=== PATIENT | female | born 1965 ===

== ENCOUNTER 2017-02-03 18:58 | Emergency (ER) | payer OTHER ==
[2017-02-03 19:12] VITALS: PULSE 64; RESP 18; TEMP 98.5; O2SAT 100
--- NOTE | 2017-02-03 19:39 | ED PDOC ---
Lower Extremity Pain/Injury Time Seen by Provider: 02/03/17 19:13 Chief Complaint (Nursing): Lower Extremity Problem/Injury Chief Complaint (Provider): left foot pain History Per: Patient, Family (son at bedside is translating in ukrainian for patient) Additional Complaint(s): 51-year-old female presents to emergency Department with pain to left foot that started 3 days ago. Patient denies trauma or injury. 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 She took Advil earlier which did help the pain. The patient states that the majority of the pain is localized to the bottom of her foot. No associated ankle pain. Past Medical History Reviewed: Historical Data, Nursing Documentation, Vital Signs Vital Signs: Last Vital Signs Temp 98.5 F 02/03/17 19:09 Pulse 64 02/03/17 19:09 Resp 18 02/03/17 19:09 BP 162/94 H 02/03/17 19:09 Pulse Ox 100 02/03/17 19:09 - Medical History PMH: HTN - Surgical History Surgical History: (x 2) Other surgeries: left foot bunionectomy, lipoma removal from anterior neck - Family History Family History: States: No Known Family Hx - Living Arrangements Living Arrangements: With Family - Social History Current smoker - smoking cessation education provided: No Alcohol: None Drugs: Denies - Home Medications Home Medications: Ambulatory Orders Medication Instructions Recorded Ibuprofen [Motrin Tab] 800 mg PO Q8 PRN #20 tab 02/03/17 - Allergies Allergies/Adverse Reactions: Allergies Allergy/AdvReac Type Severity Reaction Status Date / Time No Known Allergies Allergy Verified 02/03/17 19:09 Wells Criteria for PE - Wells Criteria for Pulmonary Embolism Clinical Signs and Symptoms of DVT: No P.E is #1 Diagnosis, or Equally Likely: No Heart Rate >100: No Immobilization at least 3 days;Surgery previous 4 weeks: No Previous, objectively diagnosed PE or DVT: No Hemoptysis: No Malignancy w/treatment within 6 months, or palliative: No Total Score: 0 Review of Systems ROS Statement: Except As Marked, All Systems Reviewed And Found Negative Musculoskeletal: Positive for: Foot Pain (left foot pain, denies trauma) Physical Exam - Reviewed Nursing Documentation Reviewed: Yes Vital Signs Reviewed: Yes - Physical Exam Appears: Positive for: Well, Non-toxic, No Acute Distress Skin: Negative for: Rash Eye Exam: Positive for: Normal appearance Extremity: Positive for: Other (Tenderness to plantar aspect of left foot with no swelling or ecchymosis, no erythema, normal distal sensation, palpable DP pulse) Neurologic/Psych: Positive for: Alert, Oriented - ECG O2 Sat by Pulse Oximetry: 100 Pulse Ox Interpretation: Normal - Other Rad Left foot x-ray X-Ray: Interpreted by Me, Viewed By Me X-Ray Interpretation: no fx, no dis Medical Decision Making Medical Decision Makin51 year old with atraumatic pain to left foot Plan: PO motrin X-ray left foot X-ray negative for acute finding. Procedure Note: Burton wrap and ortho shoe applied to left foot, N/V intact s/p placement. Patient given rx motrin and was referred to podiatry for follow up. Disposition - Clinical Impression Clinical Impression: Plantar fasciitis - Patient ED Disposition Is Patient to be Admitted: No Counseled Patient/Family Regarding: Studies Performed, Diagnosis, Need For Followup, Rx Given - Disposition Referrals: Podiatry Clinic [Outside] Disposition: Routine/Home Disposition Time: 20:43 Condition: STABLE Additional Instructions: Ice and rest affected area. Take rx meds as directed as needed for pain Follow up with podiatry clinic in 2-3 days. Prescriptions: Ibuprofen [Motrin Tab] 800 mg PO Q8 PRN #20 tab PRN Reason: Pain, Moderate (4-7) Instructions: Plantar Fasciitis (ED) Forms: Logical Apps (Italian), [facility] ED School/Work Excuse Print Language: STATELESS
[2017-02-03 21:12] VITALS: BP 150/88
--- NOTE | 2017-02-04 10:53 | RAD ---
PROCEDURE: Left Foot Radiographs. HISTORY: trauma COMPARISON: None. FINDINGS: BONES: Status post osteotomy 1st metatarsal head and distal metatarsal diaphysis. A surgical screw traverses the diaphyseal osteotomy. Mild hallux valgus remains. No acute fracture. JOINTS: Joint spaces and articular surfaces are preserved. SOFT TISSUES: Normal. OTHER FINDINGS: None. IMPRESSION: No acute fracture.
== END 2017-02-03 21:11 | disposition home or self-care (01) ==
LOC: H.ER 18:58
DX: M72.2 Plantar fascial fibromatosis (principal); I10 Essential (primary) hypertension

== ENCOUNTER 2017-09-29 08:48 | Day surgery (SDC) | payer OTHER ==
[2017-09-29] MEDS ORDERED: Lactated Ringer's 500 ML IV ONE (09:14)
[2017-09-29] MEDS ORDERED: Propofol 10 mg/ml Inj (20 ML) ONE (10:32)
[2017-09-29 10:54] VITALS: O2SAT 98
[2017-09-29 11:08] VITALS: BP 129/81; PULSE 59; RESP 15; TEMP 97.6
== END 2017-09-29 11:17 | disposition home or self-care (01) ==
LOC: H.ENDO 08:48
PROVIDERS: ATTEND Internal Medicine Gastroenterology
DX: R10.13 Epigastric pain (principal); I10 Essential (primary) hypertension; K31.89 Other diseases of stomach and duodenum
CPT/HCPCS: 43239; 88305; J2001; J2704; J7120